=== PATIENT | female | born 1990 | race Caucasian/White ===

== ENCOUNTER 2019-10-06 13:53 | Emergency (ER) | payer OTHER ==
[~2019-10-06] VITALS: Ht 162.6 cm; Wt 65.8 kg
[2019-10-06 14:00] VITALS: Ht 162.6 cm; Wt 65.8 kg
[2019-10-06 14:46] LABS: BASOPHIL % 0.2 % (0-2); PLATELET COUNT 318 x10^3mcL (130-400); RED CELL DISTRIBUTION WIDTH 13.1 % (11.5-14.5)
[2019-10-06 14:57] LABS: microscopic required? NO
[2019-10-06 15:10] LABS: ALBUMIN 4.4 g/dL (3.4-5.0); ALKALINE PHOSPHATASE 74 U/L (46-116); ALT/SGPT 26 U/L (14-59); AST/SGOT 16 U/L (15-37); BILIRUBIN TOTAL 0.3 mg/dL (0.20-1.00); CALCIUM 9.1 mg/dL (8.5-10.1); CARBON DIOXIDE 27.4 mmol/L (21-32); CHLORIDE SERUM 103 mmol/L (98-107); CHOLESTEROL 169 mg/dL (<200); CREATININE SERUM 0.8 mg/dL (0.6-1.0); GFR1 > 60 mL/min; GLUCOSE SERUM 102 mg/dL (74-106); HDL CHOLESTEROL 48 mg/dL (40-60); LIPASE 118 IU/L (73-393); MAGNESIUM 1.9 mg/dL (1.8-2.4); POTASSIUM SERUM 4.2 mmol/L (3.5-5.1); SODIUM SERUM 140 mmol/L (136-145); T4(THYROXINE) 7.8 ug/dL (4.7-13.3); urine erythrocyte NEGATIVE (NEGATIVE)
[2019-10-06 15:57] LABS: AMPHETAMINE QUAL UR NONE DETECTED (See below)
[2019-10-06 16:32] VITALS: BP 116/83
== END 2019-10-06 16:32 | disposition home or self-care (01) ==
LOC: ED 13:53
PROVIDERS: Emergency Medicine
DX: R05 Cough (principal); R03.0 Elevated blood-pressure reading, without diagnosis of hypertension; R94.6 Abnormal results of thyroid function studies; R20.0 Anesthesia of skin; R53.1 Weakness; J34.89 Other specified disorders of nose and nasal sinuses; Z88.1 Allergy status to other antibiotic agents
CPT/HCPCS: 36415; 82962; 87804

== ENCOUNTER 2020-05-13 06:49 | Emergency (ER) | payer OTHER ==
[~2020-05-13] VITALS: Ht 162.6 cm; Wt 71.7 kg
[2020-05-13 06:54] VITALS: Ht 162.6 cm; Wt 71.7 kg
[2020-05-13 08:20] VITALS: BP 149/100
== END 2020-05-13 08:20 | disposition home or self-care (01) ==
LOC: ED 06:49
DX: N39.0 Urinary tract infection, site not specified (principal); Z88.1 Allergy status to other antibiotic agents; Z88.5 Allergy status to narcotic agent

== ENCOUNTER → 2020-06-05 | Outpatient (CLI) | payer OTHER ==
[2020-06-05 10:34] LABS: microscopic required? NO
[2020-06-05 10:55] LABS: BASOPHIL % 0.3 % (0-2); PLATELET COUNT 334 x10^3mcL (130-400); RED CELL DISTRIBUTION WIDTH 13.1 % (11.5-14.5)
[2020-06-05 11:13] LABS: UA SPECIFIC GRAVITY <=1.005 (1.005-1.035); urine erythrocyte NEGATIVE (NEGATIVE)
[2020-06-05 11:16] LABS: ALBUMIN 4.2 g/dL (3.4-5.0); ALKALINE PHOSPHATASE 92 U/L (46-116); ALT/SGPT 29 U/L (14-59); AST/SGOT 15 U/L (15-37); BILIRUBIN TOTAL 0.3 mg/dL (0.20-1.00); CALCIUM 8.5 mg/dL (8.5-10.1); CARBON DIOXIDE 32.9 mmol/L (21-32); CHLORIDE SERUM 102 mmol/L (98-107); CHOLESTEROL 167 mg/dL (<200); CHOLESTEROL/HDL RATIO 3.2; CREATININE SERUM 0.7 mg/dL (0.6-1.0); GFR1 > 60 mL/min; GLUCOSE SERUM 81 mg/dL (74-106); HDL CHOLESTEROL 53 mg/dL (40-60); POTASSIUM SERUM 3.7 mmol/L (3.5-5.1); SODIUM SERUM 138 mmol/L (136-145); TOTAL PROTEIN, SERUM 7.3 g/dL (6.4-8.2); TRIGLYCERIDES 61 mg/dL (<150)
[2020-06-05 11:44] LABS: ERYTHROCYTE SED RATE 5 mm/hr (0-20)
[2020-06-06 08:06] LABS: RAPID PLASMA REAGIN Non Reactive (Non Reactive)
== END | disposition home or self-care (01) ==
LOC: US 09:43
PROVIDERS: ATTEND Family Medicine
PROC: BT4JZZZ Ultrasonography of Kidneys and Bladder (ICD-10-PCS; principal; 2020-06-05)
DX: Z00.00 Encounter for general adult medical examination without abnormal findings (principal); N39.0 Urinary tract infection, site not specified

== ENCOUNTER → 2020-07-21 | Outpatient (CLI) | payer OTHER | END | disposition home or self-care (01) | LOC: CT 17:12 | PROVIDERS: ATTEND Urology | PROC: BW211ZZ Computerized Tomography (CT Scan) of Abdomen and Pelvis using Low Osmolar Contrast (ICD-10-PCS; principal; 2020-07-21) | DX: N30.20 Other chronic cystitis without hematuria (principal); N28.9 Disorder of kidney and ureter, unspecified | CPT/HCPCS: Q9967 ==

== ENCOUNTER → 2020-07-22 | Outpatient (CLI) | payer OTHER ==
[2020-07-22 15:01] LABS: POTASSIUM SERUM 3.6 mmol/L (3.5-5.1); SODIUM SERUM 141 mmol/L (136-145)
[2020-07-22 15:16] LABS: CALCIUM 8.7 mg/dL (8.5-10.1); CARBON DIOXIDE 27.6 mmol/L (21-32); CHLORIDE SERUM 105 mmol/L (98-107); CREATININE SERUM 0.8 mg/dL (0.6-1.0); GFR1 > 60 mL/min; GLUCOSE SERUM 94 mg/dL (74-106)
== END | disposition home or self-care (01) ==
LOC: US 13:11
PROVIDERS: ATTEND Family Medicine
PROC: BH4CZZZ Ultrasonography of Head and Neck (ICD-10-PCS; principal; 2020-07-22)
DX: N30.20 Other chronic cystitis without hematuria (principal); N28.9 Disorder of kidney and ureter, unspecified; R13.10 Dysphagia, unspecified; R49.0 Dysphonia; R07.0 Pain in throat